=== PATIENT | male | born 1955 | race Caucasian/White ===

== ENCOUNTER 2018-05-16 07:36 | Inpatient (IN) | payer BC ==
[~2018-05-16] VITALS: Ht 177.8 cm; Wt 105.9 kg
[~2018-05-16 07:36] MED LIST: ASPIR 8181 MG PO; COLESTID1 G PO; HYDROXYZINE HCL25 GM PO; HYDROXYZINE HCL25 MG PO; PENTASA500 MG PO; XARELTO15 MG PO; XARELTO20 MG PO
[2018-05-16] MEDS ORDERED: SODIUM CHLORIDE 0.9% 1000ML 1,000 ML IV STA ×2 (08:03→09:50)
[2018-05-16] MEDS ORDERED: DIATRIZOATE MEGL/DIATRIZOA SOD 30 ML BTL PO ONE (08:18)
[2018-05-16] MEDS ORDERED: ONDANSETRON HCL INJ 2 MG/ML VIAL IV ONE ×2 (08:30→11:00)
[2018-05-16] MEDS ORDERED: HYDROMORPHONE 2MG/ML 2 MG/ML ML IV ONE ×2 (08:30→11:00)
[2018-05-16] MEDS ORDERED: PANTOPRAZOLE 40 MG 10ML VIAL IV ONE (08:30)
[2018-05-16 08:42] LABS: BASOPHILS # (AUTO) 0.1 (0.0-0.1); BASOPHILS % 0.4 % (0.0-1.0); EOSINOPHILS # (AUTO) 0.1 (0.0-0.4); EOSINOPHILS % 0.7 % (0.0-6.0); HEMATOCRIT 49.8 % (38.2-49.6); HEMOGLOBIN 17.2 g/dL (14.0-18.0); LYMPHOCYTES # (AUTO) 1.1 (1.0-3.2); LYMPHOCYTES % 9.1 % (18.0-39.1); MEAN CORPUSCULAR HEMOGLOBIN 31.2 pg (28-32); MEAN CORPUSCULAR HGB CONC 34.5 g/dL (31-35); MEAN CORPUSCULAR VOLUME 90.2 fL (81-99); MONOCYTES # (AUTO) 0.8 (0.2-0.8); MONOCYTES % 6.8 % (4.4-11.3); NEUTROPHILS # (AUTO) 10.2 (2.1-6.9); NEUTROPHILS % 82.8 % (38.7-80.0); PLATELET COUNT 240 x10e3/uL (140-360); RED BLOOD COUNT 5.52 x10e6/uL (4.3-5.7); RED CELL DISTRIBUTION WIDTH 13.8 % (11.7-14.4)
[2018-05-16 08:54] LABS: INR 0.84; PROTHROMBIN TIME 12.3 seconds (11.9-14.5)
[2018-05-16 08:55] LABS: PARTIAL THROMBOPLASTIN TIME 26.2 seconds (23.8-35.5)
[2018-05-16 09:05] LABS: ALANINE AMINOTRANSFERASE 34 IU/L (0-55); ALBUMIN 4.5 g/dL (3.5-5.0); ALBUMIN/GLOBULIN RATIO 1.1 (0.8-2.0); ALKALINE PHOSPHATASE 82 IU/L (40-150); AMYLASE 47 U/L (25-125); ANION GAP 17.7 mmol/L (8-16); BLOOD UREA NITROGEN 18 mg/dL (7-26); BUN/CREATININE RATIO 15 (6-25); CALCIUM 10.5 mg/dL (8.4-10.2); CARBON DIOXIDE 25 mmol/L (22-29); CHLORIDE 98 mmol/L (98-107); CREATINE KINASE 149 IU/L (30-200); CREATININE, SERUM 1.17 mg/dL (0.72-1.25); EST GLOMERULAR FILTRATION RATE > 60 ML/MIN (60-); GLUCOSE 125 mg/dL (74-118); LIPASE 19 U/L (8-78); POTASSIUM 4.7 mmol/L (3.5-5.1); SODIUM 136 mmol/L (136-145)
[2018-05-16] MEDS ORDERED: SODIUM CHLORIDE 0.9% 1000ML 1,000 ML ONE (09:53)
--- NOTE | 2018-05-16 10:18 | Diagnostic Imaging Report ---
CT Abdomen And Pelvis with Intravenous Contrast INDICATION: ^ABD PAIN DISTENSION, REBOUND, DECR BOWEL SOUNDS, HX CROHN'S TECHNIQUE: Thin collimation axial images obtained from the diaphragm to the level of the pubic symphysis following the uneventful administration of 100 cc of low osmolar, nonionic intravenous contrast. Dose reduction techniques used: Automated exposure control, adjustment of the mAs and/or kVp according to patient size, standardized low-dose protocol, and/or iterative reconstruction technique. RADIATION DOSE: Total DLP: 763.18 mGy*cm Estimated effective dose: (DLP x 0.015 x size factor) mSv CTDIvol has been reviewed. It is below the limits set by the Radiation Protocol Committee (RPC). COMPARISON: None. 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 Mild bibasilar atelectasis. There is enteric contrast distending the esophagus. Liver: Decreased attenuation.. No evidence for mass. Gallbladder: Present and contains calcified gallstones. No gallbladder wall thickening. No biliary ductal dilatation. Pancreas: Mild fatty atrophy. No mass or ductal dilatation. Spleen: Normal in size. No evidence of mass.. Adrenal Glands: Right adrenal gland is normal. Left adrenal nodule measures 1.6 x 1.7 cm. Kidneys: Right: Normal enhancement. No soft tissue mass. No hydronephrosis. Left: Normal enhancement. No soft tissue mass. No hydronephrosis. Lymph Nodes: No enlarged abdominal or retroperitoneal lymph nodes.. Aorta: Mildly ectatic but not aneurysmally dilated PELVIS FINDINGS: Bowel: Stomach: Dilated and contains enteric contrast. No mural thickening. Small Bowel: Contains enteric contrast. Several small bowel loops in the right hemiabdomen are dilated with fluid. A dilated small bowel loop in the right hemiabdomen contains inspissated enteric contents and measures 5 cm in diameter with small amount of adjacent fluid in the mesentery. The transition point is at the ileocolic anastomosis (sagittal image 110). There is normal mucosal enhancement. No mural thickening. Large Bowel: There is fluid in the proximal large bowel. The colon is collapsed. There is a small amount of stool in the sigmoid colon and rectum. No mural thickening or hyperemia. No pericolonic inflammation. Appendix: Absent. Bladder: Mild mural thickening. The prostate gland measures 4.3 x 6.3 cm in the axial plane. No loculated fluid collection. No free air. Lymph nodes: No enlarged mesenteric, pelvic, or internal lymph nodes. Bones: There is a hemangioma in the L3 vertebral body. Mild to moderate degenerative changes of L5-S1. No compression deformities. No lytic or blastic lesions. Soft tissues: No mass. There is a small fat-containing right inguinal hernia. IMPRESSION: 1. High-grade partial small bowel obstruction at the ileocolic anastomosis, likely due to adhesion. No CT findings of active Crohn's flare. No evidence of bowel perforation. 2. Steatosis. 3. Left adrenal nodule. CT or MRI dedicated to the adrenal glands is needed for further characterization. 4. Cholelithiasis. Normal biliary tree. Signed by: Dr. Siri Munoz MD on 05/16/2018 10:14 AM
--- NOTE | 2018-05-16 10:23 | Diagnostic Imaging Report ---
EXAMINATION: CHEST SINGLE (PORTABLE) COMPARISON: CT abdomen/pelvis 0941 hours INDICATION: ^ABD PAIN DISCUSSION: Frontal view of the chest obtained at 1011 hours. HEART AND MEDIASTINUM: The cardiomediastinal silhouette is unremarkable. LINES: None. LUNGS: The lungs are well inflated and clear. No pneumonia or pulmonary edema. PLEURA: No pleural effusion or pneumothorax. BONES AND SOFT TISSUES: No focal osseous lesion. The soft tissues are normal. IMPRESSION: No acute cardiopulmonary disease. Signed by: Dr. Siri Munoz MD on 05/16/2018 10:20 AM
[2018-05-16 10:49] LABS: CLARITY,URINE HAZY (CLEAR); COLOR,URINE YELLOW (YELLOW)
[2018-05-16 10:50] LABS: BILIRUBIN,URINE NEGATIVE (NEGATIVE); KETONES,URINE NEGATIVE (NEGATIVE); LEUKOCYTE ESTERASE ,URINE NEGATIVE (NEGATIVE); NITRITE,URINE NEGATIVE (NEGATIVE); PROTEIN,URINE DIPSTICK NEGATIVE (NEGATIVE); URINE UROBILINOGEN 0.2 mg/dL (0.2 - 1)
[2018-05-16] MEDS ORDERED: BENZOCAINE/TETRACAINE/BUTAMBEN AERO SPRAY 56 GM CAN TOP ONE (11:00)
[2018-05-16] MEDS ORDERED: SODIUM CHLORIDE 0.9% 1000ML 1,000 ML IV SCH (11:18)
[2018-05-16] MEDS ORDERED: ONDANSETRON HCL INJ 2 MG/ML VIAL IV PRN ×2 (11:30→14:00)
[2018-05-16] MEDS ORDERED: HYDROMORPHONE 2MG/ML 2 MG/ML ML IV PRN (11:30)
--- OUTSIDE RECORDS SUMMARY | 2018-05-16 11:32 | XMS REPORT ---
[facility] Address Unknown Phone Unavailable Care Team Providers Care Supervisor Cloth Winding Name Role Phone Annette TANNER Unavailable Unavailable Problems This patient has no known problems. Allergies, Adverse Reactions, Alerts This patient has no known allergies or adverse reactions. Medications This patient has no known medications. Results Test Description Test Time Test Comments Text Results Atomic Results Result Comments CHEST SINGLE (PORTABLE) 2018-05-16 10:19:00 [place] [address] Patient Name: AMBROSIO CAMPOS MR #: [id number] : 1955 Age/Sex: 63/M Req #: [id number] Adm Physician: Ordered by: LEONIDES TANNER MD Report #: [id number] Location: ER Room/Bed: Procedure: [id number] DX/CHEST SINGLE (PORTABLE) Exam Date: Exam Time: REPORT STATUS: Signed EXAMINATION: CHEST SINGLE (PORTABLE) COMPARISON: CT abdomen/pelvis 0941 hours INDICATION: ABD PAIN DISCUSSION: Frontal view of the chest obtained at 1011 hours. HEART AND MEDIASTINUM: The cardiomediastinal silhouette is unremarkable. LINES: None. LUNGS: The lungs are well inflated and clear. No pneumonia or pulmonary edema. PLEURA: No pleural effusion or pneumothorax. BONES AND SOFT TISSUES: No focal osseous lesion. The soft tissues are normal. IMPRESSION: No acute cardiopulmonary disease. Signed by: Dr. Judy Munoz MD on 05/16/2018 10:20 AM Dictated By: JUDY MUNOZ MD 1020 Transcribed By: MEL on 05/16/18 1020 COPY TO: LEONIDES TANNER MD CT ABDOMEN/PELVIS W 2018-05-16 10:07:00 [place] [address] Patient Name: AMBROSIO CAMPOS MR #: [id number] : 1955 Age/Sex: 63/M Req #: [id number] Adm Physician: Ordered by: LEONIDES TANNER MD Report #: [id number] Location: ER Room/Bed: Procedure: [id number] CT/CT ABDOMEN/PELVIS W Exam Date: Exam Time: REPORT STATUS: Signed CT Abdomen And Pelvis with Intravenous Contrast INDICATION: ABD PAIN DISTENSION, REBOUND, DECR BOWEL SOUNDS, HX CROHN'S TECHNIQUE: Thin collimation axial images obtained from the diaphragm to the level of the pubic symphysis following the uneventful administration of 100 cc of low osmolar, nonionic intravenous contrast. Dose reduction techniques used: Automated exposure control, adjustment of the mAs and/or kVp according to patient size, standardized low-dose protocol, and/or iterative reconstruction technique. RADIATION DOSE: Total DLP: 763.18 mGy*cm Estimated effective dose: (DLP x 0.015 x size factor) mSv CTDIvol has been reviewed. It is below the limits set by the Radiation Protocol Committee (RPC). COMPARISON: None. 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 Mild bibasilar atelectasis. There is enteric contrast distending the esophagus. Liver: Decreased attenuation.. No evidence for mass. Gallbladder: Present and contains calcified gallstones. No gallbladder wall thickening. No biliary ductal dilatation. Pancreas: Mild fatty atrophy. No mass or ductal dilatation. Spleen: Normal in size. No evidence of mass.. Adrenal Glands: Right adrenal gland is normal. Left adrenal nodule measures 1.6 x 1.7 cm. Kidneys: Right: Normal enhancement. No soft tissue mass. No hydronephrosis. Left: Normal enhancement. No soft tissue mass. No hydronephrosis. Lymph Nodes: No enlarged abdominal or retroperitoneal lymph nodes.. Aorta: Mildly ectatic but not aneurysmally dilated PELVIS FINDINGS: Bowel: Stomach: Dilated and contains enteric contrast. No mural thickening. Small Bowel: Contains enteric contrast. Several small bowel loops in the right hemiabdomen are dilated with fluid. A dilated small bowel loop in the right hemiabdomen contains inspissated enteric contents and measures 5 cm in diameter with small amount of adjacent fluid in the mesentery. The transition point is at the ileocolic anastomosis (sagittal image 110). There is normal mucosal enhancement. No mural thickening. Large Bowel: There is fluid in the proximal large bowel. The colon is collapsed. There is a small amount of stool in the sigmoid colon and rectum. No mural thickening or hyperemia. No pericolonic inflammation. Appendix: Absent. Bladder: Mild mural thickening. The prostate gland measures 4.3 x 6.3 cm in the axial plane. No loculated fluid collection. No free air. Lymph nodes: No enlarged mesenteric, pelvic, or internal lymph nodes. Bones: There is a hemangioma in the L3 vertebral body. Mild to moderate degenerative changes of L5-S1. No compression deformities. No lytic or blastic lesions. Soft tissues: No mass. There is a small fat-containing right inguinal hernia. IMPRESSION: 1. High-grade partial small bowel obstruction at the ileocolic anastomosis, likely due to adhesion. No CT findings of active Crohn's flare. No evidence of bowel perforation. 2. Steatosis. 3. Left adrenal nodule. CT or MRI dedicated to the adrenal glands is needed for further characterization. 4. Cholelithiasis. Normal biliary tree. Signed by: Dr. Judy Munoz MD on 05/16/2018 10:14 AM Dictated By: JUDY MUNOZ MD 1014 Transcribed By: MEL on 05/16/18 1014 COPY TO: LEONIDES TANNER MD
[2018-05-16] MEDS: PIPER-TAZ 3.375 GM 50 ML IV SCH ×2 (12:07→20:57)
[2018-05-16] MEDS: METRONIDAZOLE 500MG/NS 100ML 100 ML IV SCH ×2 (14:18→21:58)
[2018-05-16] MEDS: SODIUM CHLORIDE 0.9% 1000ML 1,000 ML IV SCH (14:19)
[2018-05-16] MEDS: SODIUM CHLORIDE 0.9% 250ML IRRIG IR SCH ×3 (16:02→23:00)
[2018-05-16] MEDS: PANTOPRAZOLE 40 MG 10ML VIAL IV SCH (16:02)
[2018-05-16] MEDS ORDERED: PANTOPRAZOLE 40 MG 10ML VIAL IV SCH (17:00)
--- NOTE | 2018-05-16 17:23 | Consultation ---
DATE OF CONSULTATION: May 16, 2018 REASON FOR CONSULTATION: Small bowel obstruction. HPI: The patient is a pleasant 63-year-old male admitted complaining of abdominal pain and nausea severe at times. He was in his usual state of good health until yesterday where he began having the previously described symptoms. There was no diarrhea and no history of constipation. No recent travel. The patient came to the emergency room where CT scan of the abdomen revealed small bowel obstruction likely at the level of ileocolic anastomosis for previous resection for Crohn's disease. There was no evidence of perforation or free air. The patient since insertion of a NG tube in the emergency room is feeling better. He had large amounts of gastric fluid, over a liter removed after insertion of NG tube. PAST MEDICAL HISTORY: Significant for greater than 20-year history of Crohn's disease. Patient has a history of high cholesterol and there is also history of pulmonary clots, for which no recent was found after workup by Dr. Kent. He is no longer taking any anticoagulants except for aspirin. PAST SURGICAL HISTORY: Ileocolectomy some 20 years ago, repair of bilateral inguinal hernias as a child, repair of umbilical hernia with mesh 2 years ago. ALLERGIES: PATIENT HAS NO KNOWN ALLERGIES. SOCIAL HISTORY: He does not drink or smoke. FAMILY HISTORY: Noncontributory. CURRENT MEDICATIONS: Include aspirin, Pentasa, and cholesterol lowering medicine. REVIEW OF SYSTEMS: The patient denies any constipation, any hematemesis, any diarrhea, any cramps until this current recent episode, which he denies any similar episodes in the past. He denies any chest pain, shortness of breath, or hematuria. PHYSICAL EXAMINATION GENERAL: Reveals a 63-year-old male, awake and alert, in no acute distress. VITAL SIGNS: He is afebrile with stable vital signs. His BMI is 32. HEENT: No acute process. LUNGS: Clear. HEART: Reveals regular rhythm. ABDOMEN: Soft abdomen. There are no peritoneal signs. Bowel sounds are present. There is an NG tube, which at this point is patent, but is not draining anything as it previously had recently drained more than a liter of fluid. EXTREMITIES: No clubbing, cyanosis, or edema. ADMISSION LABORATORIES: Reveal a white count of 12.35, hematocrit of 50, and platelet count of 240. Electrolytes; sodium 136, potassium 4.7, chloride 98, bicarb of 25, BUN 18, creatinine 1.17 with a GFR of greater than 60. Glucose 125. PT, PTT, and INR are normal. Urinalysis revealed no blood, no proteinuria. Chest x-ray reveals no acute process. CT scan reveals as previously stated mechanical small bowel obstruction, it is felt that this is due to scar tissue at the level of the ileocolic anastomosis. There is no evidence at this time radiologically of any Crohn's disease recurrence. There are some gallstones, but no evidence of cholecystitis. IMPRESSION 1. Mechanical small bowel obstruction. 2. History of Crohn's disease. 3. History of ileocolectomy. 4. History of ventral hernia repair at the level of the umbilicus. 5. History of inguinal hernia repair. PLAN: The plan is to continue current treatment, NG tube decompression of stomach, hydration, serial labs, and serial x-rays. The treatment plan has been discussed with the patient and his . They agree with surgical plans. Further care as per medicine and GI, Dr. Tunde Cisneros, with the patient. Job#: [id number] TRESSA
[2018-05-16 17:30] LABS: CREATINE KINASE MB 1.2 ng/mL (0-5.0)
[2018-05-16] MEDS ORDERED: SODIUM CHLORIDE 0.9% 50ML 50 ML ONE (22:22)
[2018-05-16] MEDS ORDERED: IOPAMIDOL 370 MG/ML 200 ML INFUS..BTL INJ ONE (22:22)
[2018-05-16 23:10] VITALS: BP 112/65
[2018-05-16] MEDS ORDERED: METHYLPREDNISOLONE SOD SUCC 40 MG/ML VIAL IV ONE (23:45)
[2018-05-17] VITALS (8 sets, daily range): BP systolic 112–134; BP diastolic 64–76
[2018-05-17] MEDS: SODIUM CHLORIDE 0.9% 1000ML 1,000 ML IV SCH ×5 (00:37→18:56)
[2018-05-17] MEDS: SODIUM CHLORIDE 0.9% 250ML IRRIG IR SCH ×6 (02:58→23:30)
[2018-05-17] MEDS: PIPER-TAZ 3.375 GM 50 ML IV SCH ×4 (03:15→21:30)
[2018-05-17] MEDS: METRONIDAZOLE 500MG/NS 100ML 100 ML IV SCH ×4 (04:14→22:45)
[2018-05-17] MEDS: METHYLPREDNISOLONE SOD SUCC 40 MG/ML VIAL IV SCH ×3 (05:47→21:30)
[2018-05-17 06:14] LABS: BASOPHILS % 0.1 % (0.0-1.0); EOSINOPHILS % 0.1 % (0.0-6.0); HEMATOCRIT 42.7 % (38.2-49.6); HEMOGLOBIN 14.2 g/dL (14.0-18.0); LYMPHOCYTES # (AUTO) 0.5 (1.0-3.2); LYMPHOCYTES % 6.3 % (18.0-39.1); MEAN CORPUSCULAR HGB CONC 33.3 g/dL (31-35); MEAN CORPUSCULAR VOLUME 93.2 fL (81-99); MONOCYTES # (AUTO) 0.2 (0.2-0.8); MONOCYTES % 2.2 % (4.4-11.3); NEUTROPHILS # (AUTO) 7.7 (2.1-6.9); NEUTROPHILS % 91.1 % (38.7-80.0); PLATELET COUNT 223 x10e3/uL (140-360); RED BLOOD COUNT 4.58 x10e6/uL (4.3-5.7); RED CELL DISTRIBUTION WIDTH 14.4 % (11.7-14.4)
[2018-05-17 06:45] LABS: CREATINE KINASE MB 0.8 ng/mL (0-5.0)
[2018-05-17 07:14] LABS: ALANINE AMINOTRANSFERASE 26 IU/L (0-55); ALBUMIN 3.6 g/dL (3.5-5.0); ALBUMIN/GLOBULIN RATIO 1.1 (0.8-2.0); ALKALINE PHOSPHATASE 68 IU/L (40-150); BLOOD UREA NITROGEN 16 mg/dL (7-26); BUN/CREATININE RATIO 16 (6-25); CARBON DIOXIDE 23 mmol/L (22-29); CHLORIDE 106 mmol/L (98-107); CREATININE, SERUM 1.01 mg/dL (0.72-1.25); EST GLOMERULAR FILTRATION RATE > 60 ML/MIN (60-); GLUCOSE 142 mg/dL (74-118); SODIUM 139 mmol/L (136-145)
--- NOTE | 2018-05-17 08:45 | Diagnostic Imaging Report ---
Abdomen, 3 views dated 05/17/2018 at 6:51 AM. History: Small bowel obstruction. Comparison: CT scan of the abdomen and pelvis dated 05/16/2018 Findings: There is an NG tube with its tip below the diaphragm. Two calcified gallstones are present. The intestinal gas pattern is nonobstructive. There no masses or abnormal calcifications. Contrast within the urinary bladder from the prior study. The osseous structures are intact. IMPRESSION: No acute abdominal abnormality. Signed by: Dr. Benedicto Justin DO on 05/17/2018 8:42 AM
[2018-05-17 14:32] LABS: BLOOD UREA NITROGEN 14 mg/dL (7-26); BUN/CREATININE RATIO 16 (6-25); CALCIUM 8.7 mg/dL (8.4-10.2); CARBON DIOXIDE 23 mmol/L (22-29); CHLORIDE 108 mmol/L (98-107); CREATININE, SERUM 0.88 mg/dL (0.72-1.25); EST GLOMERULAR FILTRATION RATE > 60 ML/MIN (60-); GLUCOSE 121 mg/dL (74-118); SODIUM 139 mmol/L (136-145)
[2018-05-17] MEDS: PANTOPRAZOLE 40 MG 10ML VIAL IV SCH (16:06)
[2018-05-18] VITALS: BP 113/64
[2018-05-18] MEDS: SODIUM CHLORIDE 0.9% 250ML IRRIG IR SCH ×3 (02:00→10:20)
[2018-05-18] MEDS: PIPER-TAZ 3.375 GM 50 ML IV SCH ×4 (03:41→21:50)
[2018-05-18 04:00] VITALS: BP 116/63
[2018-05-18] MEDS: METRONIDAZOLE 500MG/NS 100ML 100 ML IV SCH ×4 (04:16→22:30)
[2018-05-18] MEDS: METHYLPREDNISOLONE SOD SUCC 40 MG/ML VIAL IV SCH ×3 (05:51→21:50)
[2018-05-18] MEDS: SODIUM CHLORIDE 0.9% 1000ML 1,000 ML IV SCH ×3 (05:51→21:25)
[2018-05-18 06:19] LABS: BLOOD UREA NITROGEN 14 mg/dL (7-26); BUN/CREATININE RATIO 15 (6-25); CALCIUM 8.5 mg/dL (8.4-10.2); CARBON DIOXIDE 24 mmol/L (22-29); CHLORIDE 109 mmol/L (98-107); CREATININE, SERUM 0.96 mg/dL (0.72-1.25); EST GLOMERULAR FILTRATION RATE > 60 ML/MIN (60-); GLUCOSE 129 mg/dL (74-118); SODIUM 141 mmol/L (136-145)
[2018-05-18 08:35] VITALS: BP 112/65
[2018-05-18 12:42] VITALS: BP 119/73
--- NOTE | 2018-05-18 13:48 | Diagnostic Imaging Report ---
Abdomen, 3 views dated 05/17/2018 at 6:51 AM. History: Small bowel obstruction. Comparison: CT scan of the abdomen and pelvis 05/16/2018, KUB 05/17/2018 Findings: There is an NG tube with its tip below the diaphragm. There are dilated small bowel loops, which measure up to 4.1 cm. Some air is seen in nondilated colonic loops. Cholelithiasis is again noted. No evidence of urinary calcifications. No acute osseous abnormality. IMPRESSION: Findings consistent with continued partial small bowel obstruction with dilated small bowel loops and some air seen within decompressed colonic loops. Signed by: Dr. Triny Valente MD on 05/18/2018 1:45 PM
[2018-05-18] MEDS: PANTOPRAZOLE 40 MG 10ML VIAL IV SCH (15:42)
[2018-05-18 16:50] VITALS: BP 119/66
[2018-05-18 20:00] VITALS: BP 130/70
[2018-05-19] VITALS (8 sets, daily range): BP systolic 113–123; BP diastolic 55–75
[2018-05-19] MEDS: PIPER-TAZ 3.375 GM 50 ML IV SCH ×4 (03:31→21:19)
[2018-05-19] MEDS: METRONIDAZOLE 500MG/NS 100ML 100 ML IV SCH ×4 (04:12→22:30)
[2018-05-19 05:53] LABS: HEMOGLOBIN 12.9 g/dL (14.0-18.0); LYMPHOCYTES # (AUTO) 0.9 (1.0-3.2); LYMPHOCYTES % 9.4 % (18.0-39.1); MEAN CORPUSCULAR HEMOGLOBIN 31.5 pg (28-32); MEAN CORPUSCULAR HGB CONC 33.9 g/dL (31-35); MEAN CORPUSCULAR VOLUME 92.9 fL (81-99); MONOCYTES # (AUTO) 0.3 (0.2-0.8); MONOCYTES % 3.5 % (4.4-11.3); NEUTROPHILS # (AUTO) 8.2 (2.1-6.9); NEUTROPHILS % 86.7 % (38.7-80.0); PLATELET COUNT 205 x10e3/uL (140-360); RED BLOOD COUNT 4.09 x10e6/uL (4.3-5.7); RED CELL DISTRIBUTION WIDTH 13.9 % (11.7-14.4)
[2018-05-19] MEDS: METHYLPREDNISOLONE SOD SUCC 40 MG/ML VIAL IV SCH ×3 (05:54→21:19)
[2018-05-19 06:00] LABS: ANION GAP 13.6 mmol/L (8-16); BLOOD UREA NITROGEN 14 mg/dL (7-26); BUN/CREATININE RATIO 16 (6-25); CALCIUM 8.4 mg/dL (8.4-10.2); CARBON DIOXIDE 20 mmol/L (22-29); CHLORIDE 108 mmol/L (98-107); CREATININE, SERUM 0.85 mg/dL (0.72-1.25); EST GLOMERULAR FILTRATION RATE > 60 ML/MIN (60-); GLUCOSE 127 mg/dL (74-118); POTASSIUM 3.6 mmol/L (3.5-5.1); SODIUM 138 mmol/L (136-145)
[2018-05-19] MEDS: SODIUM CHLORIDE 0.9% 1000ML 1,000 ML IV SCH (07:13)
[2018-05-19] MEDS: KCL 20MEQ/.9 SOD CHL 1,000 ML IV SCH ×2 (09:13→17:13)
[2018-05-19] MEDS: PANTOPRAZOLE 40 MG 10ML VIAL IV SCH (14:32)
[2018-05-20] VITALS (7 sets, daily range): BP systolic 103–125; BP diastolic 60–79
[2018-05-20] MEDS: PIPER-TAZ 3.375 GM 50 ML IV SCH ×4 (02:28→21:09)
[2018-05-20] MEDS: KCL 20MEQ/.9 SOD CHL 1,000 ML IV SCH ×3 (02:28→18:26)
[2018-05-20] MEDS: METRONIDAZOLE 500MG/NS 100ML 100 ML IV SCH ×4 (03:31→22:05)
[2018-05-20] MEDS: METHYLPREDNISOLONE SOD SUCC 40 MG/ML VIAL IV SCH ×3 (05:25→21:09)
[2018-05-20] MEDS: PANTOPRAZOLE 40 MG 10ML VIAL IV SCH (14:43)
[2018-05-21] VITALS: BP 108/63
[2018-05-21] MEDS: KCL 20MEQ/.9 SOD CHL 1,000 ML IV SCH ×2 (00:33→09:13)
[2018-05-21] MEDS: PIPER-TAZ 3.375 GM 50 ML IV SCH ×2 (02:32→08:18)
[2018-05-21] MEDS: METRONIDAZOLE 500MG/NS 100ML 100 ML IV SCH ×2 (03:13→09:13)
[2018-05-21 04:00] VITALS: BP 139/64
[2018-05-21] MEDS: METHYLPREDNISOLONE SOD SUCC 40 MG/ML VIAL IV SCH (05:24)
[2018-05-21 08:06] VITALS: BP 140/82
[2018-05-21 09:25] VITALS: BP 140/82
[2018-05-28] MEDS ORDERED: ASPIRIN81 MG PO (12:29)
== END 2018-05-21 11:43 | disposition home or self-care (01) | DRG 389 ==
LOC: ER 07:36 → ERHOLD 11:08 → MED/SURG 22:24
PROC: 0D9670Z Drainage of Stomach with Drainage Device, Via Natural or Artificial Opening (ICD-10-PCS; principal; 2018-05-16)
DX: K56.51 Intestinal adhesions [bands], with partial obstruction (principal); K50.90 Crohn's disease, unspecified, without complications; E78.00 Pure hypercholesterolemia, unspecified; E86.0 Dehydration; K76.0 Fatty (change of) liver, not elsewhere classified; K80.20 Calculus of gallbladder without cholecystitis without obstruction; Z79.82 Long term (current) use of aspirin
CPT/HCPCS: 36415; 71045; 74019; 74177; 80048; 80053; 81001; 82150; 82550; 82553; 83605; 83690; 83735; 84484; 85025; 85610; 85651; 85730; 86140; 86256; 86671; 87040; 87086; 93005; 99283; J2405; J2543; J2920; J7030; Q9967

== ENCOUNTER → 2018-05-28 | Day surgery (SDC) | payer BC ==
[~2018-05-28] MED LIST changes: +ASPIRIN81 MG PO; +FENTANYL CITRATE/PF 100MCG/2 ML INJ ONE; +HYOSCYAMINE SULFATE 0.5 MG/ML INJ ONE; +MIDAZOLAM HCL 2 MG/2 ML VIAL ONE; +PROPOFOL IV EMULSION 10 MG/ML 50 ML VIAL ONE
[2018-05-28 15:30] VITALS: BP 121/86
--- NOTE | 2018-05-28 15:52 | Operative Report ---
DATE OF PROCEDURE: May 28, 2018 REFERRING PHYSICIAN: Dr. Ariel Hernandez. PROCEDURE PERFORMED: Colonoscopy with balloon dilatation of an ileocolic stricture and biopsies. INDICATIONS FOR PROCEDURE: History of Crohn's disease, strictured ileocolic anastomosis. Patient in for a colonoscopy and balloon dilatation of the ileocolic stricture. MEDICATION: Patient was done under MAC. Please see anesthesiologist's note. PROCEDURE: With the patient in the left lateral decubitus position, the flexible fiberoptic Olympus colonoscope was inserted into the rectum and advanced all the way to the ileocolic anastomosis. It was strictured, and it was subsequently dilated to size 15 per TTS balloon dilators. The scope was then withdrawn slowly. Mucosa overlying the transverse, descending and sigmoid was grossly within normal limits other than for a few scattered aphthous-like ulcers. The mucosa overlying the rectum revealed some diffuse erythema and low-grade edema, and biopsies were obtained. The scope was then retroflexed into the distal rectum and small internal hemorrhoids were noted, none of which was actively bleeding. The scope was then straightened out. It was subsequently withdrawn. Patient tolerated procedure well. IMPRESSION: 1. Stricture at ileocolic anastomosis dilated to size 15 per TTS balloon dilators. 2. A few scattered aphthous-like ulcers in the colon. 3. Proctitis, mild. Biopsied. 4. Internal hemorrhoids, none actively bleeding. PLAN: Follow up histology. Patient will need a repeat colonoscopy with balloon dilatation up to 18 to 20 mm of the aforementioned stricture. Job#: [id number] EV cc:ARIEL HERNANDEZ MD
== END | disposition home or self-care (01) ==
LOC: OR 12:22
PROVIDERS: ATTEND Internal Medicine Gastroenterology
DX: K56.699 Other intestinal obstruction unspecified as to partial versus complete obstruction (principal); K50.90 Crohn's disease, unspecified, without complications; Z98.0 Intestinal bypass and anastomosis status; K63.3 Ulcer of intestine; K62.89 Other specified diseases of anus and rectum; K64.8 Other hemorrhoids; Z01.810 Encounter for preprocedural cardiovascular examination; Z79.82 Long term (current) use of aspirin; Z68.32 Body mass index [BMI] 32.0-32.9, adult
CPT/HCPCS: 45380; 45386; 93005; J1980; J2250; 44405; 45378

== ENCOUNTER → 2018-09-02 | Day surgery (SDC) | payer BC ==
[~2018-09-02] MED LIST changes: +GLUCAGON FOR INJ 1 MG VIAL ONE
[2018-09-02 14:05] VITALS: BP 127/76
--- NOTE | 2018-09-02 20:59 | Operative Report ---
DATE OF PROCEDURE: 09/02/2018 SURGEON: Tunde Cisneros MD PROCEDURE: Colonoscopy with balloon dilatation of anastomotic stricture. INDICATIONS FOR COLONOSCOPY: The patient with history of Crohn disease, history of anastomotic stricture. For colonoscopy and balloon dilatation. MEDICATIONS: The patient was done under MAC, please see anesthesiologist's note. PROCEDURE IN DETAIL: With the patient in left lateral decubitus position, the flexible fiberoptic Olympus colonoscope was inserted into the rectum with ease and advanced all the way to the ileocolic anastomosis. Anastomosis was ulcerated, it was subsequently dilated to size 18 mm per TTS balloon dilators. The scope was then advanced beyond the stricture and biopsies were obtained. The visualized mucosa of the terminal ileum was ulcerated. The scope was then withdrawn slowly and whatever was visualized the mucosa overlying the ascending, transverse, descending, sigmoid, and rectum grossly appeared to be within normal limits. The scope was then retroflexed into the distal rectum and small internal hemorrhoids were noted, none of which was actively bleeding. The scope was then straightened out, it was subsequently withdrawn, and the patient tolerated procedure well. IMPRESSION: 1. 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 2. Internal hemorrhoids, none actively bleeding. PLAN: Follow up histology. The patient might need to be started on a biologic. Tunde Cisneros MD [facility] [place] /[id number] cc: Rodo Cisneros MD
== END | disposition home or self-care (01) ==
LOC: OR 11:30
PROVIDERS: ATTEND Internal Medicine Gastroenterology
DX: K56.699 Other intestinal obstruction unspecified as to partial versus complete obstruction (principal); Z98.0 Intestinal bypass and anastomosis status; K50.90 Crohn's disease, unspecified, without complications; K63.3 Ulcer of intestine; K57.30 Diverticulosis of large intestine without perforation or abscess without bleeding; K64.8 Other hemorrhoids; Z79.82 Long term (current) use of aspirin; Z68.32 Body mass index [BMI] 32.0-32.9, adult
CPT/HCPCS: 45380; 45386; J1610; J1980; J2250; J2704; 45378

== ENCOUNTER → 2021-09-18 | Day surgery (SDC) | payer MEDICARE, OTHER ==
[2021-09-16 16:38] LABS: BASOPHILS # (AUTO) 0.1 (0.0-0.1); BASOPHILS % 1.1 % (0.0-1.0); EOSINOPHILS # (AUTO) 0.2 (0.0-0.4); EOSINOPHILS % 3.1 % (0.0-6.0); HEMATOCRIT 43.7 % (38.2-49.6); HEMOGLOBIN 14.5 g/dL (14.0-18.0); LYMPHOCYTES # (AUTO) 1.7 (1.0-3.2); LYMPHOCYTES % 27.3 % (18.0-39.1); MEAN CORPUSCULAR HEMOGLOBIN 31.9 pg (28-32); MEAN CORPUSCULAR HGB CONC 33.2 g/dL (31-35); MONOCYTES # (AUTO) 0.5 (0.2-0.8); MONOCYTES % 7.4 % (4.4-11.3); NEUTROPHILS # (AUTO) 3.7 (2.1-6.9); NEUTROPHILS % 60.9 % (38.7-80.0); PLATELET COUNT 218 x10e3/uL (140-360); RED BLOOD COUNT 4.55 x10e6/uL (4.3-5.7); RED CELL DISTRIBUTION WIDTH 13.8 % (11.7-14.4)
[~2021-09-18] MED LIST changes: +ASPIRIN325 MG PO; -GLUCAGON FOR INJ 1 MG VIAL ONE; -HYOSCYAMINE SULFATE 0.5 MG/ML INJ ONE; +LIDOCAINE HCL 2% LOCAL INJ 5 ML SDV VIAL INJ ONE; +PROPOFOL IV EMULSION 10 MG/ML 20 ML VIAL ONE; -PROPOFOL IV EMULSION 10 MG/ML 50 ML VIAL ONE
[2021-09-18 13:20] VITALS: BP 121/61
== END | disposition home or self-care (01) ==
LOC: OR 09:03
PROVIDERS: ATTEND Internal Medicine Gastroenterology
DX: K50.90 Crohn's disease, unspecified, without complications (principal); Z98.0 Intestinal bypass and anastomosis status; K63.3 Ulcer of intestine; K57.30 Diverticulosis of large intestine without perforation or abscess without bleeding; K64.8 Other hemorrhoids; Z71.3 Dietary counseling and surveillance; I44.0 Atrioventricular block, first degree; I49.1 Atrial premature depolarization; Z01.810 Encounter for preprocedural cardiovascular examination; Z01.812 Encounter for preprocedural laboratory examination; Z20.822 Contact with and (suspected) exposure to COVID-19; Z79.82 Long term (current) use of aspirin; Z79.899 Other long term (current) drug therapy; Z68.32 Body mass index [BMI] 32.0-32.9, adult
CPT/HCPCS: 36415 ×2; 45380; 83993; 85025; 86141; 88305; 93005; J2001; J2250; J2704; J3010; U0002; 45378

== ENCOUNTER → 2021-10-25 | Outpatient (CLI) | payer MEDICARE, OTHER ==
[~2021-10-25] MED LIST changes: -FENTANYL CITRATE/PF 100MCG/2 ML INJ ONE; -LIDOCAINE HCL 2% LOCAL INJ 5 ML SDV VIAL INJ ONE; -MIDAZOLAM HCL 2 MG/2 ML VIAL ONE; -PROPOFOL IV EMULSION 10 MG/ML 20 ML VIAL ONE
== END ==
LOC: DX 07:30
PROVIDERS: ATTEND Internal Medicine Gastroenterology
DX: K50.90 Crohn's disease, unspecified, without complications (principal)
CPT/HCPCS: 74250; U0002

== ENCOUNTER → 2024-07-22 | Day surgery (SDC) | payer MEDICARE, OTHER ==
[2024-07-20 11:20] LABS: BASOPHILS % 0.9 % (0.0-1.0); EOSINOPHILS # (AUTO) 0.2 (0.0-0.4); EOSINOPHILS % 4.7 % (0.0-6.0); HEMATOCRIT 40.8 % (38.2-49.6); LYMPHOCYTES # (AUTO) 1.5 (1.0-3.2); LYMPHOCYTES % 32.3 % (18.0-39.1); MEAN CORPUSCULAR HEMOGLOBIN 31.9 pg (28-32); MEAN CORPUSCULAR HGB CONC 34.3 g/dL (31-35); MEAN CORPUSCULAR VOLUME 92.9 fL (81-99); MONOCYTES # (AUTO) 0.4 (0.2-0.8); MONOCYTES % 9.4 % (4.4-11.3); NEUTROPHILS # (AUTO) 2.5 (2.1-6.9); NEUTROPHILS % 52.5 % (38.7-80.0); PLATELET COUNT 188 x10e3/uL (140-360); RED BLOOD COUNT 4.39 x10e6/uL (4.3-5.7); RED CELL DISTRIBUTION WIDTH 13.8 % (11.7-14.4)
[~2024-07-22] MED LIST changes: +ATORVASTATIN CA20 MG PO; +FENTANYL CITRATE/PF 100MCG/2 ML INJ ONE; +GLUCAGON FOR INJ 1 MG VIAL ONE; +HYOSCYAMINE SULFATE 0.5 MG/ML INJ ONE; +LIDOCAINE HCL 2% LOCAL INJ 5 ML SDV VIAL INJ ONE; +METOCLOPRAMIDE HCL 10 MG/2ML VIAL ONE; +PROBIOTIC & AC1 EACH PO; +PROPOFOL IV EMULSION 50 ML IV ONE; +VITAMIN C1000 MG PO; +VITAMIN D; +VITAMIN E400 UNI1 PO
[2024-07-22] MEDS: LACTATED RINGER'S 1,000 ML ONE (15:04)
[2024-07-22 16:29] VITALS: TEMP 97
[2024-07-22 17:00] VITALS: BP 122/75; PULSE 68; RESP 16; O2SAT 96
[2024-07-22 17:51] LABS: CDIFF AG QUIK CHEK NEGATIVE (NEGATIVE); CDIFF TOX QUIK CHEK NEGATIVE (NEGATIVE)
[2024-07-23 14:15] LABS: C-REACTIVE PROTEIN <1 mg/L (0-10)
[2024-07-27 08:12] LABS: ENDOMYSIAL ANTIBODIES, IGA Negative (Negative)
[2024-07-27 14:38] LABS: IMMUNOGLOBULIN A 223 mg/dL (61-437); TISSUE TRANSGLUTAMINASE IGA AB 2 U/mL (0-3)
== END | disposition home or self-care (01) ==
LOC: OR 14:11
PROVIDERS: ATTEND Internal Medicine Gastroenterology
DX: K29.50 Unspecified chronic gastritis without bleeding (principal); Z86.0100 Personal history of colon polyps, unspecified; K22.10 Ulcer of esophagus without bleeding; K50.90 Crohn's disease, unspecified, without complications; K44.9 Diaphragmatic hernia without obstruction or gangrene; R19.5 Other fecal abnormalities; K21.9 Gastro-esophageal reflux disease without esophagitis; Z98.0 Intestinal bypass and anastomosis status; K64.8 Other hemorrhoids; Z71.3 Dietary counseling and surveillance; Z71.89 Other specified counseling; E78.5 Hyperlipidemia, unspecified; E66.01 Morbid (severe) obesity due to excess calories; Z01.810 Encounter for preprocedural cardiovascular examination; Z01.812 Encounter for preprocedural laboratory examination; Z79.82 Long term (current) use of aspirin; Z79.899 Other long term (current) drug therapy; Z68.34 Body mass index [BMI] 34.0-34.9, adult
CPT/HCPCS: 36415; 43239; 45380; 82784; 83516; 83630; 83993; 85025; 86140; 86256; 87045; 87177; 87324; 87328; 87449; 88305; 88342; 93005; J1610; J1980; J2003; J2470; J2704; J2765; J3010; J7121; 45378